=== PATIENT | male | born 1955 ===

== ENCOUNTER 2017-07-21 14:08 | Inpatient (IN) | payer BC ==
[~2017-07-21] VITALS: Ht 162.6 cm; Wt 74.0 kg
[2017-07-21] MEDS ORDERED: ASPIRIN 325 MG TAB PO STA (14:37)
--- NOTE | 2017-07-21 14:43 | ERD ---
ER Documentation Chief Complaint Chief Complaint pt bib family with c/o BP going up and down x 3 days, CP with resp only HPI This is a 61-year-old male, Yakut-speaking. Shoe P[employer] use. He states that over the last 2 weeks he has noted his blood pressures been elevated but cannot give me a number. Occasionally he is having palpitations and feeling like his heart is racing and gets lightheaded with pre-syncopal symptoms. He has not had syncope. Currently has no active chest pain but had some discomfort earlier today just prior to arrival and took some Naprosyn that improved his symptoms. He denies any mid back pain. He denies cardiac history and less primary care follow-up was over one year ago. ROS All systems reviewed and are negative except as per history of present illness. Medications Home Meds No Active Prescriptions or Reported Meds Allergies Allergies: Coded Allergies: No Known Allergy (Unverified , 07/21/17) FmHx Family History: coronary disease, diabetes Physical Exam Vitals Vital Signs Date Time Temp Pulse Resp B/P Pulse Ox O2 Delivery O2 Flow Rate FiO2 07/21/17 14:35 Nasal Cannula 2 07/21/17 14:16 98.3 72 16 125/65 97 Physical Exam General: Well developed, well nourished, no acute distress extremely well- appearing and asymptomatic Head: Normocephalic, atraumatic. Eyes: Pupils equally reactive, EOM intact ENT: Moist mucous membranes Neck: Supple, no lymphadenopathy Respiratory: Lungs clear bilaterally, no distress Cardiovascular: RRR, no murmurs, rubs, or gallops Abdominal: Soft, non-tender, non-distended, no peritoneal signs : Deferred MSK: No edema, no unilateral swelling, 5/5 strength, no pulse deficits Neurologic: Alert and oriented, moving all extremities, normal speech, no focal weakness, no cerebellar signs Skin: No rash Psych: Normal mood Result Diagram: 07/21/17 1250 07/21/17 1250 Results 24 hrs Laboratory Tests Test 07/21/17 12:50 White Blood Count 7.310^3/ul Red Blood Count 4.1610^6/ul Hemoglobin 12.9g/dl Hematocrit 37.8% Mean Corpuscular Volume 90.9fl Mean Corpuscular Hemoglobin 31.0pg Mean Corpuscular Hemoglobin Concent 34.1g/dl Red Cell Distribution Width 13.7% Platelet Count 31038^3/UL Mean Platelet Volume 9.2fl Neutrophils % 61.9% Lymphocytes % 26.2% Monocytes % 7.2% Eosinophils % 3.3% Basophils % 0.8% Nucleated Red Blood Cells % 0.0/100WBC Neutrophils # 4.510^3/ul Lymphocytes # 1.910^3/ul Monocytes # 0.510^3/ul Eosinophils # 0.210^3/ul Basophils # 0.110^3/ul Nucleated Red Blood Cells # 0.010^3/ul Sodium Level 139mmol/L Potassium Level 4.1mmol/L Chloride Level 101mmol/L Carbon Dioxide Level 30mmol/L Anion Gap 12 Blood Urea Nitrogen 20mg/dl Creatinine 1.06mg/dl Glucose Level 91mg/dl Calcium Level 8.8mg/dl Troponin I < 0.012ng/ml Current Medications Medications (Trade) Dose Ordered Sig/Gail Route PRN Reason Start Time Stop Time Status Last Admin Dose Admin Aspirin (Aspirin) 325 mg ONCE STAT PO 07/21/17 14:37 07/21/17 14:38 DC 07/21/17 16:41 Ondansetron HCl (Zofran Inj) 4 mg ER BRIDGE PRN IV NAUSEA AND/OR VOMITING 07/21/17 17:00 07/22/17 16:59 Acetaminophen (Tylenol Tab) 650 mg ER BRIDGE PRN PO MILD PAIN/FEVER 07/21/17 17:00 07/22/17 16:59 Procedures/MDM EKG, MONITORS, & DIAGNOSTIC IMAGING: EKG: I reviewed and interpreted a 12-lead EKG. Rhythm: Normal sinus rhythm Ectopy: None Intervals: No abnormalities ST segments: Subtle ST segment abnormalities less than 1 mm in V2 and V3 without reciprocal changes T waves: Significant T-wave inversions that are pronounced in leads V3 through V6 Repeat EKG: EKG: I reviewed and interpreted a 12-lead EKG. Rhythm: Normal sinus rhythm Ectopy: None Intervals: No abnormalities ST segments: Subtle ST segment abnormalities less than 1 mm in V2 and V3 without reciprocal changes T waves: Significant T-wave inversions that are pronounced in leads V3 through V6 Chest x-ray: I reviewed and interpreted a 1 view of the chest Mediastinum: No enlargement Cardiac silhouette: No cardiomegaly Airspace: Clear lung perez bilaterally without evidence of pneumothorax Bones: No evidence of fracture LAB INTERPRETATION: Negative troponin MEDICAL DECISION MAKING: The patient's history, physical exam and clinical presentation is concerning for possible cardiogenic etiology and acute coronary syndrome. The patient's EKG is dramatically abnormal concerning for chronic and likely undiagnosed coronary artery disease. However, the patient is asymptomatic and chest pain- free. His EKG does not meet ST elevation myocardial infarction criteria therefore no indication for emergent Slot Router activation. However, given the significant abnormality in his EKG without significant follow-up or prior investigation I strongly recommend hospitalization, cardiology consultation and possible nonemergent angiogram. He has no headache or signs or symptoms concerning for subarachnoid. Based on the patient's clinical exam and history and risk factors, I have a much lower clinical concern for pulmonary embolism, acute aortic dissection, pneumothorax, pneumonia, cardiac tamponade HEART Score: 5 MACE Rate: 16.6% Shared Decision Making: We had a conversation regarding risk stratification, MACE rate, and the risks, benefits, alternatives of disposition planning options. Disposition planning: Admission ER COURSE: The patient is chest pain-free. Aspirin provided. The patient remains well-appearing in the emergency department. His troponin is negative. We are pending hospitalization to rule out acute coronary syndrome. I kept the patient and/or family informed of laboratory and diagnostic imaging results throughout the emergency room course. DISPOSITION PLAN: My telemetry admit Telemetry admission for management of chest pain to rule out acute coronary syndrome, serial enzymes, risk stratification and consideration of provocative testing CONSULTATION: Accepting care team and consultations: I discussed the current laboratory data, diagnostic imaging and emergency care provided. Admitting team: Dr. Tadeo Admitting team indication: Insurance directed Departure Diagnosis: Primary Impression: Abnormal EKG Additional Impression: Palpitations Condition: Stable CHING JUAREZ MD Jul 21, 2017 14:43
[2017-07-21 14:58] LABS: BASOPHIL # 0.1 10^3/ul (0.0-0.1); BASOPHILS % 0.8 % (0.0-2.0); EOSINOPHILS # 0.2 10^3/ul (0.0-0.5); EOSINOPHILS % 3.3 % (0.0-7.0); HEMATOCRIT 37.8 % (42.0-52.0); HEMOGLOBIN 12.9 g/dl (14.0-18.0); LYMPHOCYTES # 1.9 10^3/ul (0.8-2.9); LYMPHOCYTES % 26.2 % (15.0-51.0); MEAN CORPUSCULAR HGB CONC 34.1 g/dl (32.0-37.0); MEAN CORPUSCULAR VOLUME 90.9 fl (82.0-101.0); MEAN PLATELET VOLUME 9.2 fl (7.4-10.4); MONOCYTE # 0.5 10^3/ul (0.3-0.9); MONOCYTES % 7.2 % (0.0-11.0); NEUTROPHIL # 4.5 10^3/ul (1.6-7.5); NEUTROPHILS % 61.9 % (39.0-77.0); PLATELET COUNT 175 10^3/UL (140-415); RED BLOOD COUNT 4.16 10^6/ul (4.70-6.10); RED CELL DISTRIBUTION WIDTH 13.7 % (11.5-14.5); WHITE BLOOD COUNT 7.3 10^3/ul (4.8-10.8)
[2017-07-21 15:15] LABS: ANION GAP 12 (8-16); BLOOD UREA NITROGEN 20 mg/dl (7-20); CALCIUM 8.8 mg/dl (8.4-10.2); CARBON DIOXIDE 30 mmol/L (21-31); CHLORIDE 101 mmol/L (97-110); CREATININE 1.06 mg/dl (0.61-1.24); GLUCOSE 91 mg/dl (70-220); POTASSIUM 4.1 mmol/L (3.5-5.1); SODIUM 139 mmol/L (135-144)
--- NOTE | 2017-07-21 15:17 | RADRPT ---
PROCEDURE: XR Chest. CLINICAL INDICATION: Chest pain. TECHNIQUE: Single frontal view. COMPARISON: None. FINDINGS: The lungs are clear. The heart size is normal. There is no pleural effusion. There is no pneumothorax. There is an old healed left clavicle fracture. IMPRESSION: 1. Old healed left clavicle fracture. 2. Otherwise unremarkable chest radiograph. RPTAT: QQ .Ollie Vo MD, MD Date Time Electronically viewed and signed by .Ollie Vo MD, on 07/21/2017 15:17 .R/
[2017-07-21 15:51] LABS: TROPONIN-I < 0.012 ng/ml (0.00-0.12)
[2017-07-21] MEDS ORDERED: ONDANSETRON 4 MG INJ IV PRN (17:00)
[2017-07-21] MEDS ORDERED: ACETAMINOPHEN 325 MG TAB PO PRN (17:00)
--- NOTE | 2017-07-21 18:04 | HP ---
Date/Time of Note Date/Time of Note DATE: 07/21/17 TIME: 18:00 Assessment/Plan VTE Prophylaxis VTE Prophylaxis Intervention: LMWH Lines/Catheters IV Catheter Type (from Nrs): Saline Lock Assessment/Plan Chief Complaint/Hosp Course 61 yo male with atypical chest pain and abnormal EKG - Concerning for ischemic heart disease - Repeat troponin to exclude acute [place] - Would perform stress test, per cardiology - Can start aspirin and statin - Check lipids, A1C - BP at goal off of therapy - Telemetry monitoring - TTE Problems: HPI/ROS Admit Date/Time Admit Date/Time Hx of Present Illness 61 yo male without PMH presneting with chest symptoms x 2 weeks Describes vague chest tightness that occurs farily randomly. No clear angina but does sound like he gets more winded with exertion over past couple weeks. Never experienced anything like this before. Denies any SOB at rest. Chest tightness sensation not relate to exertion, occurs at rest but says never at night w sleep. Works in [employer], not limited at work. Worried his blood pressure is high so came to ED, but normotensive here. No symptoms currently EKG in ED with diffuse biphasic TWI, vitals wnl, tropnoin neg PMH/Family/Social Past Medical History Medical History: no pertinent history Past Surgical History Past Surgical Hx: no surgical history Family History Significant Family History: no pertinent family hx Social History Alcohol Use: none Smoking Status: Current every day smoker Drug Use: none Exam/Review of Systems Vital Signs Vitals Vital Signs Date Time Temp Pulse Resp B/P Pulse Ox O2 Delivery O2 Flow Rate FiO2 07/21/17 16:00 98.1 80 16 125/72 100 Room Air 07/21/17 14:35 2 Exam Constitutional: alert, oriented, well developed Psych: nl mood/affect, no complaints Head: atraumatic, normocephalic Eyes: EOMI, PERRL, nl conjunctiva, nl lids, nl sclera ENMT: nl external ears & nose, nl lips & teeth, nl nasal mucosa & septum Neck: non-tender, supple Respiratory: clear to auscultation, normal air movement Cardiovascular: nl pulses, regular rate and rhythm Gastrointestinal: nl liver, spleen, non-tender, soft Musculoskeletal: nl extremities to inspection Extremities: normal pulses Neurological: PROCESS SAFETY ENGINEER II-XII intact, nl mental status, nl speech, nl strength Skin: nl turgor, No rash or lesions Lymph: nl lymph nodes Labs Result Diagram: 07/21/17 1250 07/21/17 1250 CHRISTAL CHOUDHURY MD Jul 21, 2017 18:04
[2017-07-21] MEDS ORDERED: NACL 0.9% 3 ML SYG IV SCH (18:30)
[2017-07-21 18:55] VITALS: TEMP 98.7
[2017-07-21 20:35] VITALS: PULSE 56
[2017-07-21] MEDS ORDERED: ATORVASTATIN 20 MG TAB PO SCH (21:00)
[2017-07-21 21:04] VITALS: Ht 162.6 cm; Wt 74.0 kg
[2017-07-21 22:12] LABS: CREATINE KINASE 159 IU/L (23-200)
[2017-07-21 22:25] LABS: CK-MB 2.34 ng/ml (0.0-2.4); TROPONIN-I < 0.012 ng/ml (0.00-0.12)
[2017-07-21 23:50] VITALS: BP 107/67; RESP 19
[2017-07-22] VITALS (7 sets, daily range): BP systolic 101–113; BP diastolic 59–61; PULSE 55–66; RESP 18
[2017-07-22 03:04] LABS: CREATINE KINASE 145 IU/L (23-200)
[2017-07-22 03:36] LABS: CK-MB 2.01 ng/ml (0.0-2.4); TROPONIN-I < 0.012 ng/ml (0.00-0.12)
[2017-07-22 07:31] LABS: BASOPHIL # 0.1 10^3/ul (0.0-0.1); BASOPHILS % 0.9 % (0.0-2.0); EOSINOPHILS # 0.2 10^3/ul (0.0-0.5); EOSINOPHILS % 3.5 % (0.0-7.0); HEMATOCRIT 37.2 % (42.0-52.0); HEMOGLOBIN 12.2 g/dl (14.0-18.0); LYMPHOCYTES # 2.6 10^3/ul (0.8-2.9); MEAN CORPUSCULAR HEMOGLOBIN 29.8 pg (29.0-33.0); MEAN CORPUSCULAR HGB CONC 32.8 g/dl (32.0-37.0); MONOCYTE # 0.5 10^3/ul (0.3-0.9); MONOCYTES % 7.8 % (0.0-11.0); NEUTROPHIL # 3.5 10^3/ul (1.6-7.5); NEUTROPHILS % 50.4 % (39.0-77.0); PLATELET COUNT 185 10^3/UL (140-415); RED BLOOD COUNT 4.09 10^6/ul (4.70-6.10); RED CELL DISTRIBUTION WIDTH 14.1 % (11.5-14.5); WHITE BLOOD COUNT 6.9 10^3/ul (4.8-10.8)
[2017-07-22 07:47] LABS: ALBUMIN 3.3 g/dl (3.3-4.9); ALBUMIN/GLOBULIN RATIO 1.32; BILIRUBIN,INDIRECT 0.1 mg/dl (0-1.1); BILIRUBIN,TOTAL 0.1 mg/dl (0.2-1.3); CALCIUM 8.5 mg/dl (8.4-10.2); CREATININE 0.87 mg/dl (0.61-1.24); POTASSIUM 3.9 mmol/L (3.5-5.1); TOTAL PROTEIN 5.8 g/dl (6.1-8.1)
[2017-07-22] MEDS ORDERED: ASPIRIN 81 MG TAB PO SCH (09:00)
[2017-07-22] MEDS ORDERED: ENOXAPARIN 40 MG/0.4 ML SYG SC SCH (09:00)
[2017-07-22] MEDS ORDERED: REGADENOSON 0.4 MG/5 ML SYG ONE (12:18)
[2017-07-22] MEDS ORDERED: NITROGLYCERIN (SL) 0.4 MG TAB SL PRN (13:00)
--- NOTE | 2017-07-22 14:22 | RADRPT ---
PROCEDURE: Nuclear medicine myocardial stress and rest scan. CLINICAL INDICATION: Chest pain. TECHNIQUE: The patient was stressed with 0.4 mg IV Lexiscan. 10 mCi technetium 99m Tetrofosmin ( Myoview) was administered rest. 30 mCi technetium 99m Tetrofosmin (Myoview) was administered duri ng stress. Images were obtained and reconstructed in the short axis, horizontal long axis, and vert ical long axis. Gated images were obtained and ejection fraction was calculated. COMPARISON: No prior study is available for comparison. FINDINGS: The stress and rest images demonstrate normal uptake throughout. There is no fixed abnormality or r eversible abnormality. There is no evidence of transient ischemic dilatation. Wall motion is normal. There is normal wall thickening during systole. Ejection fraction at stress is 59%. IMPRESSION: 1. No evidence of stress induced myocardial ischemia. 2. Ejection fraction at stress is 59%. RPTAT: QQ .Ollie Vo MD, MD Date Time Electronically viewed and signed by .Ollie Vo MD, on 07/22/2017 14:22 .R/
--- NOTE | 2017-07-22 15:31 | PDOCDIS ---
Discharge Instructions DIAGNOSIS Discharge Diagnosis Chest pain CONDITION Patient Condition: Good HOME CARE INSTRUCTIONS: Diet Instructions: RegularSpecial Diet: Cardiac FOLLOW UP/APPOINTMENTS Follow-up Plan You underwent cardiac testing that revealed no abnormalities Please follow up with your primary care doctor for further care CHRISTAL CHOUDHURY MD Jul 22, 2017 15:31
--- NOTE | 2017-07-22 15:32 | DS ---
Date/Time of Note Date/Time of Note DATE: 07/22/17 TIME: 15:31 Discharge Summary Admission/Discharge Info Admit Date/Time Jul 21, 2017 at 16:48 Discharge Date/Time Discharge Diagnosis Chest pain Patient Condition: Good Hx of Present Illness 61 yo male without PMH presneting with chest symptoms x 2 weeks Describes vague chest tightness that occurs farily randomly. No clear angina but does sound like he gets more winded with exertion over past couple weeks. Never experienced anything like this before. Denies any SOB at rest. Chest tightness sensation not relate to exertion, occurs at rest but says never at night w sleep. Works in [employer] shop, not limited at work. Worried his blood pressure is high so came to ED, but normotensive here. No symptoms currently EKG in ED with diffuse biphasic TWI, vitals wnl, tropnoin neg Hospital Course 61 yo male with atypical chest pain and abnormal EKG - Concerning for ischemic heart disease - Repeat troponin to exclude acute [place] - Would perform stress test, per cardiology - Can start aspirin and statin - Check lipids, A1C - BP at goal off of therapy - Telemetry monitoring - TTE The patient had serial troponins that were negative. Symptosm resolved. EKG was concernign for ishcemia. He underwent a nuclear stress test which showed no abnormalities. He was discharged for further care with his primary care doctor Home Meds No Active Prescriptions or Reported Meds Follow-up Plan You underwent cardiac testing that revealed no abnormalities Please follow up with your primary care doctor for further care Primary Care Provider Not On Staff Doctor Pending Labs Laboratory Tests Test 07/21/17 21:27 07/22/17 02:29 07/22/17 06:52 07/22/17 06:53 Creatine Kinase 159IU/L (23-200) 145IU/L (23-200) Creatine Kinase Index 1.5 1.4 Creatinine Kinase MB (Mass) 2.34ng/ml (0.0-2.4) 2.01ng/ml (0.0-2.4) Troponin I < 0.012ng/ml (0.00-0.12) < 0.012ng/ml (0.00-0.12) White Blood Count 6.910^3/ul (4.8-10.8) Red Blood Count 4.0910^6/ul (4.70-6.10) Hemoglobin 12.2g/dl (14.0-18.0) Hematocrit 37.2% (42.0-52.0) Mean Corpuscular Volume 91.0fl (82.0-101.0) Mean Corpuscular Hemoglobin 29.8pg (29.0-33.0) Mean Corpuscular Hemoglobin Concent 32.8g/dl (32.0-37.0) Red Cell Distribution Width 14.1% (11.5-14.5) Platelet Count 16640^3/UL (140-415) Mean Platelet Volume 10.0fl (7.4-10.4) Neutrophils % 50.4% (39.0-77.0) Lymphocytes % 37.0% (15.0-51.0) Monocytes % 7.8% (0.0-11.0) Eosinophils % 3.5% (0.0-7.0) Basophils % 0.9% (0.0-2.0) Nucleated Red Blood Cells % 0.0/100WBC (0.0-0.0) Neutrophils # 3.510^3/ul (1.6-7.5) Lymphocytes # 2.610^3/ul (0.8-2.9) Monocytes # 0.510^3/ul (0.3-0.9) Eosinophils # 0.210^3/ul (0.0-0.5) Basophils # 0.110^3/ul (0.0-0.1) Nucleated Red Blood Cells # 0.010^3/ul (0.0-0.0) Sodium Level 140mmol/L (135-144) Potassium Level 3.9mmol/L (3.5-5.1) Chloride Level 106mmol/L (97-110) Carbon Dioxide Level 27mmol/L (21-31) Anion Gap 11 (8-16) Blood Urea Nitrogen 15mg/dl (7-20) Creatinine 0.87mg/dl (0.61-1.24) Glucose Level 81mg/dl (70-220) Hemoglobin A1c 5.6% (0-5.9) Calcium Level 8.5mg/dl (8.4-10.2) Total Bilirubin 0.1mg/dl (0.2-1.3) Direct Bilirubin 0.00mg/dl (0.00-0.20) Indirect Bilirubin 0.1mg/dl (0-1.1) Aspartate Amino Transf (AST/SGOT) 24IU/L (15-46) Alanine Aminotransferase (ALT/SGPT) 36IU/L (13-69) Alkaline Phosphatase 49IU/L (42-121) Total Protein 5.8g/dl (6.1-8.1) Albumin 3.3g/dl (3.3-4.9) Globulin 2.50g/dl (1.3-3.2) Albumin/Globulin Ratio 1.32 Triglycerides Level 95mg/dl (0-149) Cholesterol Level 153mg/dl (100-200) LDL Cholesterol, Calculated 96mg/dl HDL Cholesterol 38mg/dl (30-78) Cholesterol/HDL Ratio 4.0CHRISTAL FOOTE MD Jul 22, 2017 15:32
--- NOTE | 2017-07-22 16:38 | RADRPT ---
Echocardiogram Report Patient Name: TALAT SCHNEIDER Gender: Male Date: 1955 Study Date: 22-Jul-2017 Geospatial Systems Integrator: USHA Location: 5557 Ref. Physician: CHRISTAL CHOUDHURY Quality: Good Procedures: Transthoracic echocardiogram with complete 2D, M-Mode, and doppler examination. Indications: Abnormal EKG. Chest Pain. 2D/M Mode Doppler Measurement Value Normal Ranges Measurement Value Normal Ranges AoR Diam MM 3.5 cm WILBERTO Vmax 3.0 cm2 ACS MM 2.0 cm WILBERTO VTI 3.0 cm2 LA/Ao MM 1.1 AV Peak Ismael 1.1 m/sec LA Dimen MM 3.8 cm AV Peak PG 5.1 mmHg LVIDd 2D 5.0 3.5 - 5.6 cm LVOT Peak Ismael 1.0 m/sec LVIDs 2D 3.5 2.1 - 4.1 cm LVOT Peak PG 4.1 mmHg LVPWd 2D 0.9 0.6 - 1.1 cm MV E Peak Ismael 0.7 m/sec IVSd 2D 0.9 0.6 - 1.1 cm MV A Peak Ismael 0.5 m/sec EDV 2D 116.2 cm3 MV E/A 1.3 ESV 2D 44.5 cm3 MV Decel Time 201 msec EF 2D 55.0 50.0 - 65.0 % MV Decel Stanley 3 LVOT Diam 2.1 cm MV E/A 1.3 Findings Left Ventricle: Ejection fraction is visually estimated at 5560 %. Tissue Doppler/Mitral Doppler indices are consistent with pseudonormalization with mildly elevated left atrial pressure (Stage II diastolic dysfunction). These segments of the LV are hypokinetic apical septum. Right Ventricle: Normal right ventricular size. Normal right ventricular systolic function. Left Atrium: The left atrium is normal in size. Right Atrium: The right atrium is normal in size. Mitral Valve: Normal appearance and function of the mitral valve with trace physiologic regurgitation. Aortic Valve: Normal appearance of the aortic valve. No significant aortic stenosis or insufficiency. Normal trileaflet aortic valve structure. Trileaflet aortic valve. Tricuspid Valve: Normal appearance and function of the tricuspid valve with trace physiologic regurgitation. Normal right ventricular systolic pressure. Pulmonic Valve: Normal pulmonic valve appearance. Pericardium: Normal pericardium with no significant pericardial effusion. Aorta: Normal aortic root. IVC: Normal size and normal respiratory collapse consistent with normal right atrial pressure. Conclusions 1.Ejection fraction is visually estimated at 55-60 %. Tissue Doppler/Mitral Doppler indices are consistent with pseudonormalization with mildly elevated left atrial pressure (Stage II diastolic dysfunction). These segments of the LV are hypokinetic apical septum. 2.Normal appearance and function of the mitral valve with trace physiologic regurgitation. 3.Normal appearance and function of the tricuspid valve with trace physiologic regurgitation. Normal right ventricular systolic pressure. Electronically Signed By: Arthur Back 22-Jul-2017 16:37:35 -0700 Patient Name: TALAT SCHNEIDER Study Date: 22-Jul-2017 [id number]
--- NOTE | 2017-07-23 01:03 | CARRPT ---
DATE OF PROCEDURE: 07/22/2017 TYPE OF PROCEDURE: Lexiscan Cardiolite stress test, electrocardiogram portion. INDICATION: Chest pain, assess for ischemia, abnormal electrocardiogram. BASELINE VITAL SIGNS AND ELECTROCARDIOGRAM: Pulse 62, blood pressure 112/65. Electrocardiogram rev eals normal sinus rhythm, rate of 62 with normal axis, normal intervals with T-wave inversions later ally and anterior. PROCEDURE: The patient underwent standard Lexiscan infusion protocol over 10 seconds, followed by r adiotracer. The patient's test was stopped due to completion of protocol. Maximal achieved blood p ressure during the test 113/62. Maximal achieved heart rate during the test 82. ELECTROCARDIOGRAM FINDINGS: The patient did not develop any new Lexiscan-induced ST or T-wave nye es from baseline abnormalities. No documented PVCs. SYMPTOMS: The patient had complaints of mild chest pain during stress test that resolved in recover y. IMPRESSION: 1. No Lexiscan-induced ST or T-wave changes from baseline abnormalities diagnostic for ischemia. 2. Complaints of chest pain during stress test that resolved in recovery. 3. No documented premature ventricular contractions during stress testing. 4. Report of nuclear images to follow in separate dictation. Dictated By: JOSE DUTTA/BONNIE Conf#: [id number] DID#: [id number] CC: KEI; LUCIA OLSON;*End*
--- NOTE | 2017-07-23 07:48 | CONS ---
DATE OF ADMISSION: 07/21/2017 DATE OF CONSULTATION: 07/22/2017 TYPE OF CONSULTATION: CARDIAC REASON FOR CONSULTATION: Chest pain, assess for acute coronary syndrome. REQUESTING PHYSICIAN: Dr. Bee HISTORY OF PRESENT ILLNESS: Ms. Toscano is a 62-year-old female with a history of recurrent episodes of chest pain. The patient states that the chest pain described as a chest tightness, occ urs both at rest and with exertional activities. Has been ongoing for approximately 2 to 3 weeks. Initially, upon arrival in the emergency department, temperature 98.3, blood pressure 125/65, pulse 72, respirations 16, satting 97%. The patient's labs notable for white count 7.3, hemoglobin 12.9, platelet count 175. A sodium of 139, potassium 4.1, creatinine 1.0, BUN 20. Troponin negative. The patient underwent a chest x-ray revealing old healed left clavicle fracture, but otherwise clear lungs. Patient's electrocardiogram revealed normal sinus rhythm with T-wave inversions V3 to V6. Patient subsequently admitted to the floor, started on aspirin, had blood pressure borderline 100 with some bradycardia. The patient has had ongoing intermittent chest pain. The patient's trop onins thus far are negative x3. PAST MEDICAL HISTORY: As above in HPI. MEDICATIONS CURRENTLY IN HOSPITAL 1. Aspirin 81 mg daily. 2. Lipitor 20 mg at bedtime. ALLERGIES: NO KNOWN DRUG ALLERGIES. SOCIAL HISTORY: No tobacco, ETOH or illicit drug use. FAMILY HISTORY: No history of sudden cardiac or early CAD. REVIEW OF SYSTEMS: As above in HPI. CONSTITUTIONAL: Fevers, chills. PULMONARY: No current shortness of breath. CARDIOVASCULAR: Positive chest pain. GASTROINTESTINAL: No vomiting. GENITOURINARY: No hematuria. MUSCULOSKELETAL: Degenerative joint disease. PSYCHIATRIC: The patient denies depression. NEUROLOGIC: No documented history of CVA. PHYSICAL EXAMINATION VITAL SIGNS: Temperature of 98.7, blood pressure 108/59, pulse 70, respiratory rate 18, saturating 97%. GENERAL: The patient is alert, awake, complaining of intermittent chest pain. NECK: JVP approximately 8 to 9 cm of water. CHEST: Fair air movement throughout. HEART: Regular rate and rhythm. Normal S1, S2, I/ systolic murmur, nondisplaced PMI. ABDOMEN: Positive bowel sounds, soft. EXTREMITIES: No edema, 1+ pulses bilaterally, posterior tibial. LABORATORY DATA: As above in HPI, with most recent from today, sodium 140, potassium 3.9, creatinin e 0.8, BUN 15. LDL 96, HDL 38. White blood cell count 6.9, hemoglobin 12.2, platelet count of 185. IMAGING STUDIES: As above in HPI. No further imaging studies for my review at this time. ECG: No further electrocardiograms for my review at this time. IMPRESSION: 1. Chest pain, assess for acute coronary syndrome with negative troponins x3. 2. Abnormal electrocardiogram with T-wave inversions across the precordial leads V3 to V6, deep, as sess for acute coronary syndrome. 3. Bradycardia, borderline. 4. Hypotension, borderline. 5. Dyslipidemia with low HDL. RECOMMENDATIONS: 1. At this time, would maintain the patient on telemetry monitoring to follow rhythm and rate contr ol closely. 2. Would continue the patient's aspirin for prophylaxis against cardiovascular events. 3. Continue the patient's statin therapy. 4. Continue to check serial EKGs to assess for any significant ongoing changes. EKG in the morning , EKG for any complaint of chest pain or change in rhythm. 6. We will follow the patient's 2D echo done for assessment of ejection fraction, wall motion or an y major valve abnormalities. I will also give patient sublingual nitroglycerin for recurrent episod es of chest pain and given the patient's ongoing symptomatology with abnormal cardiac findings, will place the patient in for a Lexiscan Cardiolite stress test today in order to assess for the possibi lity of significant obstructive coronary artery disease lending to symptoms of chest pain and subseq uent EKG abnormalities. Thank you for allowing me to take part in the care of this patient. I will continue to follow along very closely with you. Further recommendations will be made as the patient progresses through her inpatient hospital clinical course. Dictated By: JOSE DUTTA/BONNIE Conf#: [id number] DID#: [id number] CC: CHRISTAL BEE MD;*EndCC*
== END 2017-07-22 16:24 | disposition home or self-care (01) | DRG 313 ==
LOC: E/R 14:08 → MS4 16:48
PROVIDERS: ADMIT Internal Medicine; ATTEND Internal Medicine
DX: R07.9 Chest pain, unspecified (principal); I95.9 Hypotension, unspecified; R00.1 Bradycardia, unspecified; R94.31 Abnormal electrocardiogram [ECG] [EKG]; E78.5 Hyperlipidemia, unspecified
CPT/HCPCS: 36415; 71010; 78452; 80048; 80053; 80061; 82550; 82553; 83036; 84484; 85025; 93005; 93017; 93306; A9500; A9505; J1650; J2785